=== PATIENT | female | born 1990 | race Caucasian/White ===

== ENCOUNTER 2017-10-20 11:02 | Emergency (ER) | payer BC ==
[2017-10-20] MEDS ORDERED: SODIUM CHLORIDE 0.9% 1,000 ML IV STA (11:28)
[2017-10-20] MEDS ORDERED: KETOROLAC 30 MG/ML 1 ML VIAL IVP STA (11:28)
--- NOTE | 2017-10-20 11:33 | ED ---
General Adult HPI - General Chief complaint: Back Pain/Injury Stated complaint: right back pain Time Seen by Provider: 10/20/17 11:15 Source: patient, RN notes reviewed Mode of arrival: ambulatory Limitations: no limitations - History of Present Illness Initial comments: 27-year-old female presents to the emergency department with a chief complaint of right flank pain. She states she's had this for about 3 days now. She states in the right flank. She states she hasn't had any burning or stinging with urination. She has had hot and cold flashes. She denies any blood in the urine. She denies any history of this in the past. She states she called the on-call doctor and they referred her here. They were concerned due to the patient's continued pain so she thought that she should be seen.Patient denies any recent fever, chills, shortness of breath, chest pain, nausea vomiting, numbness or tingling, dysuria or hematuria, constipation or diarrhea, headaches or visual changes, or any other current symptoms. - Related Data Home Medications Medication Instructions Recorded Confirmed ALPRAZolam [Xanax] 0.5 mg PO DAILY PRN 10/20/17 10/20/17 Previous Rx's Medication Instructions Recorded predniSONE 50 mg PO DAILY #5 tab 10/20/17 Allergies Allergy/AdvReac Type Severity Reaction Status Date / Time hydrocodone bitartrate Allergy Nausea & Verified 10/20/17 12:17 [From Vicodin] Vomiting iodine Allergy Unknown Verified 10/20/17 12:17 Review of Systems ROS Statement: Those systems with pertinent positive or pertinent negative responses have been documented in the HPI. ROS Other: All systems not noted in ROS Statement are negative. Past Medical History Past Medical History: GERD/Reflux Additional Past Medical History / Comment(s): epigastric pain for last few months, changes in bowel habits, family hx. Crohn's History of Any Multi-Drug Resistant Organisms: None Reported Additional Past Surgical History / Comment(s): eye surgery as an infant. [place] teeth removal. Past Anesthesia/Blood Transfusion Reactions: No Reported Reaction Past Psychological History: Anxiety Smoking Status: Current every day smoker Past Alcohol Use History: None Reported Past Drug Use History: None Reported - Past Family History Father Family Medical History: Diabetes Mellitus General Exam - General Exam Comments Initial Comments: General: The patient is awake and alert, in no distress, and does not appear acutely ill. Eye: Pupils are equal, round and reactive to light, extra-ocular movements are intact; there is normal conjunctiva bilaterally. No signs of icterus. Ears, nose, mouth and throat: There are moist mucous membranes and no oral lesions. Neck: The neck is supple, there is no tenderness. Cardiovascular: There is a regular rate and rhythm. No murmur, rub or gallop is appreciated. Respiratory: Lungs are clear to auscultation, respirations are non-labored, breath sounds are equal. No wheezes, stridor, rales, or rhonchi. Gastrointestinal: Soft, non-distended, non-tender abdomen without masses or organomegaly noted. There is no rebound or guarding present. No CVA tenderness. Bowel sounds are unremarkable. Back: There is no tenderness to palpation in the midline. There is no obvious deformity. No rashes noted. Musculoskeletal: Normal ROM, no tenderness, There is no pedal edema. There is no calf tenderness or swelling. Sensation intact. Pulses equal bilaterally 2+. Neurological: CN II-XII intact, There are no obvious motor or sensory deficits. Coordination appears grossly intact. Speech is normal. Skin: Skin is warm and dry and no rashes or lesions are noted. Psychiatric: Cooperative, appropriate mood & affect, normal judgment. Limitations: no limitations Course Vital Signs 10/20/17 11:12 Temperature 98.1 F Pulse Rate 80 Respiratory 20 Rate Blood Pressure 124/78 O2 Sat by Pulse 99 Oximetry Medical Decision Making - Medical Decision Making 27-year-old female presents for right-sided flank pain. At this time patient's CAT scan lab work is been reviewed. Does appear the patient has a colitis. At this time we discussed care for this. We discussed follow-up we discussed return parameters all questions. Patient stated that she understood and she is agreement this plan. All questions have been answered. She will be discharged. - Lab Data Result diagrams: 10/20/17 11:37 10/20/17 11:37 Lab Results 10/20/17 10/20/17 10/20/17 Range/Units 11:37 11:37 11:37 WBC 5.2 (3.8-10.6) k/uL RBC 5.01 (3.80-5.40) m/uL Hgb 15.1 (11.4-16.0) gm/dL Hct 47.1 H (34.0-46.0) % MCV 94.1 (80.0-100.0) fL MCH 30.1 (25.0-35.0) pg MCHC 32.0 (31.0-37.0) g/dL RDW 12.6 (11.5-15.5) % Plt Count 304 (150-450) k/uL Neutrophils % 45 % Lymphocytes % 39 % Monocytes % 5 % Eosinophils % 8 % Basophils % 1 % Neutrophils # 2.3 (1.3-7.7) k/uL Lymphocytes # 2.0 (1.0-4.8) k/uL Monocytes # 0.3 (0-1.0) k/uL Eosinophils # 0.4 (0-0.7) k/uL Basophils # 0.0 (0-0.2) k/uL Sodium 141 (137-145) mmol/L Potassium 4.3 (3.5-5.1) mmol/L Chloride 104 (98-107) mmol/L Carbon Dioxide 26 (22-30) mmol/L Anion Gap 11 mmol/L BUN 13 (7-17) mg/dL Creatinine 0.70 (0.52-1.04) mg/dL Est GFR (MDRD) Af Amer >60 (>60 ml/min/1.73 sqM) Est GFR (MDRD) Non-Af >60 (>60 ml/min/1.73 sqM) Glucose 88 (74-99) mg/dL Calcium 9.6 (8.4-10.2) mg/dL Total Bilirubin 0.4 (0.2-1.3) mg/dL AST 25 (14-36) U/L ALT 35 (9-52) U/L Alkaline Phosphatase 53 (38-126) U/L Total Protein 7.6 (6.3-8.2) g/dL Albumin 4.5 (3.5-5.0) g/dL Amylase 59 (30-110) U/L Lipase 106 (23-300) U/L Urine Color Urine Appearance (Clear) Urine pH (5.0-8.0) Ur Specific [place] (1.001-1.035) Urine Protein (Negative) Urine Glucose (UA) (Negative) Urine Ketones (Negative) Urine Blood (Negative) Urine Nitrite (Negative) Urine Bilirubin (Negative) Urine Urobilinogen (<2.0) mg/dL Ur Leukocyte Esterase (Negative) Urine HCG, Qual Not Detected (Not Detectd) 10/20/17 Range/Units 11:37 WBC (3.8-10.6) k/uL RBC (3.80-5.40) m/uL Hgb (11.4-16.0) gm/dL Hct (34.0-46.0) % MCV (80.0-100.0) fL MCH (25.0-35.0) pg MCHC (31.0-37.0) g/dL RDW (11.5-15.5) % Plt Count (150-450) k/uL Neutrophils % % Lymphocytes % % Monocytes % % Eosinophils % % Basophils % % Neutrophils # (1.3-7.7) k/uL Lymphocytes # (1.0-4.8) k/uL Monocytes # (0-1.0) k/uL Eosinophils # (0-0.7) k/uL Basophils # (0-0.2) k/uL Sodium (137-145) mmol/L Potassium (3.5-5.1) mmol/L Chloride (98-107) mmol/L Carbon Dioxide (22-30) mmol/L Anion Gap mmol/L BUN (7-17) mg/dL Creatinine (0.52-1.04) mg/dL Est GFR (MDRD) Af Amer (>60 ml/min/1.73 sqM) Est GFR (MDRD) Non-Af (>60 ml/min/1.73 sqM) Glucose (74-99) mg/dL Calcium (8.4-10.2) mg/dL Total Bilirubin (0.2-1.3) mg/dL AST (14-36) U/L ALT (9-52) U/L Alkaline Phosphatase (38-126) U/L Total Protein (6.3-8.2) g/dL Albumin (3.5-5.0) g/dL Amylase (30-110) U/L Lipase (23-300) U/L Urine Color Yellow Urine Appearance Clear (Clear) Urine pH 5.0 (5.0-8.0) Ur Specific [place] 1.016 (1.001-1.035) Urine Protein Negative (Negative) Urine Glucose (UA) Negative (Negative) Urine Ketones Negative (Negative) Urine Blood Negative (Negative) Urine Nitrite Negative (Negative) Urine Bilirubin Negative (Negative) Urine Urobilinogen <2.0 (<2.0) mg/dL Ur Leukocyte Esterase Negative (Negative) Urine HCG, Qual (Not Detectd) - Radiology Data Radiology results: report reviewed, image reviewed Disposition Clinical Impression: Colitis Disposition: HOME SELF-CARE Condition: Stable Instructions: Colitis (ED) Additional Instructions: Please use medication as discussed. Please follow up with family doctor if symptoms have not improved over the next two days. Please return to the emergency room if your symptoms increase or worsen or for any other concerns. Prescriptions: predniSONE 50 mg PO DAILY #5 tab Referrals: Lenny Elizabeth MD [Primary Care Provider] - 1-2 days Time of Disposition: 13:00
[2017-10-20 11:51] LABS: Appearance,Urine Clear (Clear); Basophils % (A) 1 %; Bilirubin,Urine Negative (Negative); Blood,Urine Negative (Negative); Color,Urine Yellow; Eosinophils # (A) 0.4 k/uL (0-0.7); Eosinophils % (A) 8 %; Glucose,Urine (UA) Negative (Negative); HCT 47.1 % (34.0-46.0); HGB 15.1 gm/dL (11.4-16.0); Ketones,Urine Negative (Negative); Leukocyte Esterase,Urine Negative (Negative); Lymphocytes % (A) 39 %; MCH 30.1 pg (25.0-35.0); MCV 94.1 fL (80.0-100.0); Mean Platelet Volume 6.6; Monocytes # (A) 0.3 k/uL (0-1.0); Monocytes % (A) 5 %; Neutrophils # (A) 2.3 k/uL (1.3-7.7); Neutrophils % (A) 45 %; Nitrite,Urine Negative (Negative); Platelet Count 304 k/uL (150-450); Protein,Urine Negative (Negative); RBC 5.01 m/uL (3.80-5.40); RDW 12.6 % (11.5-15.5); Specific Gravity,Urine 1.016 (1.001-1.035); Urobilinogen,Urine <2.0 mg/dL (<2.0); WBC 5.2 k/uL (3.8-10.6)
[2017-10-20 12:05] LABS: ALT 35 U/L (9-52); AST 25 U/L (14-36); Albumin 4.5 g/dL (3.5-5.0); Alkaline Phosphatase 53 U/L (38-126); Amylase 59 U/L (30-110); Anion Gap 11 mmol/L; Blood Urea Nitrogen 13 mg/dL (7-17); Calcium 9.6 mg/dL (8.4-10.2); Carbon Dioxide 26 mmol/L (22-30); Chloride 104 mmol/L (98-107); Glucose 88 mg/dL (74-99); Lipase 106 U/L (23-300); Potassium 4.3 mmol/L (3.5-5.1); Sodium 141 mmol/L (137-145); Total Bilirubin 0.4 mg/dL (0.2-1.3); Total Protein 7.6 g/dL (6.3-8.2)
--- NOTE | 2017-10-20 12:48 | CT ---
EXAMINATION TYPE: CT abdomen pelvis wo con DATE OF EXAM: 10/20/2017 COMPARISON: NONE HISTORY: Right flank and back pain CT DLP: 392.30 mGycm Automated exposure control for dose reduction was used. FINDINGS: There is a mild pectus excavatum deformity. Visualized portions of the lungs are clear. There is no pleural or pericardial fluid. The heart is no t enlarged. There is a small hiatal hernia. Within the abdomen, the liver is mildly prominent measuring 20 cm. This is largely due to a prominent Christos's lobe. The spleen and gallbladder are normal. Both adrenal glands are normal. There is no evidence of hydronephrosis or nephrolithiasis. The pancreas is unremarkable. There is no significant retroperitoneal, iliac or inguinal adenopathy. The bladder is unremarkable. There is an IUCD within the uterus. There are follicular changes within the ovaries. There is no significant diverticular change and there is no radiographic evidence of diverticulitis. There is mucosal thickening involving the transverse colon. The appendix is not visualized with certa inty. There is no free fluid and no free air. No bony lesion is identified. IMPRESSION: 1. MUCOSAL THICKENING THROUGHOUT THE TRANSVERSE COLON. PLEASE CORRELATE FOR COLITIS. 2. SMALL HIATAL HERNIA. 3. NO EVIDENCE OF NEPHROLITHIASIS OR HYDRONEPHROSIS.
[2017-10-20] MEDS ORDERED: METOCLOPRAMIDE 5 MG/ML 2 ML VIAL IVP STA (13:04)
[2017-10-20 13:20] VITALS: BP 101/55; PULSE 68; RESP 18; TEMP 97.9
== END 2017-10-20 13:19 | disposition home or self-care (01) ==
LOC: EC 11:02
DX: K52.9 Noninfective gastroenteritis and colitis, unspecified (principal); F17.200 Nicotine dependence, unspecified, uncomplicated; Z87.19 Personal history of other diseases of the digestive system; Z88.5 Allergy status to narcotic agent; Z91.048 Other nonmedicinal substance allergy status
CPT/HCPCS: 36415; 80053; 82150; 83690; 85025; 81003; 81025; 87040; 87086; 74176; 99284; 96374; 96375; 96361 ×2; J2765; J1885

== ENCOUNTER → 2018-10-10 | Outpatient (CLI) | payer OTHER ==
[2018-10-10 12:56] LABS: Glucose 2 Hour 107 mg/dL
== END | disposition home or self-care (01) ==
LOC: LABWHC1 08:43
PROVIDERS: ATTEND Family Medicine
DX: E16.2 Hypoglycemia, unspecified (principal)
CPT/HCPCS: 36415; 82947; 82950

== ENCOUNTER → 2018-10-31 | Outpatient (CLI) | payer BC, OTHER ==
--- NOTE | 2018-10-31 12:59 | US ---
EXAMINATION TYPE: US pelvic complete DATE OF EXAM: 10/31/2018 COMPARISON: NONE CLINICAL HISTORY: E28.2 PCOS. IUD removed in June, has been 10-18 days for 2 cycles since, having infertility issues, possible pcos TECHNIQUE: TA. Date of LMP: unknown EXAM MEASUREMENTS: Uterus: 7.2 x 6.2 x 4.1 cm Endometrial Stripe: 0.7 cm Right Ovary: 3.5 x 2.6 x 2.5 cm Left Ovary: 2.9 x 2.6 x 2.3 cm 1. Uterus: Retroverted wnl 2. Endometrium: wnl 3. Right Ovary: multiple very small peripherally oriented follicles seen 4. Left Ovary: multiple very small peripherally oriented follicles seen 5. Bilateral Adnexa: wnl 6. Posterior cul-de-sac: wnl IMPRESSION: Multiple bilateral very small peripherally oriented follicles are seen suggestive of poly cystic ovarian syndrome however the number cannot be clearly accounted as only transabdominal imaging was performed.
== END | disposition home or self-care (01) ==
LOC: RADUSWWP 12:16
PROVIDERS: ATTEND Family Medicine
DX: E28.2 Polycystic ovarian syndrome (principal)
CPT/HCPCS: 76856

== ENCOUNTER 2020-03-29 19:00 | Outpatient (CLI) | payer OTHER ==
[2020-03-29 19:34] VITALS: RESP 16; TEMP 98.4
[2020-03-29 20:14] LABS: Appearance,Urine Clear (Clear); Bilirubin,Urine Negative (Negative); Blood,Urine Negative (Negative); Color,Urine Light Yellow; Glucose,Urine (UA) Negative (Negative); Ketones,Urine Trace (Negative); Leukocyte Esterase,Urine Negative (Negative); Nitrite,Urine Negative (Negative); Protein,Urine Negative (Negative); Specific Gravity,Urine 1.014 (1.001-1.035); Urobilinogen,Urine <2.0 mg/dL (<2.0)
[2020-03-29] MEDS: LACTATED RINGERS 1,000 ML IV SCH ×5 (20:45→22:04)
[2020-03-29] MEDS: TERBUTALINE 1 MG/ML VIAL SQ PRN ×2 (22:05→22:20)
[2020-03-30 01:36] VITALS: BP 128/62; PULSE 76
--- NOTE | 2020-04-16 19:12 | P.MSEPDOC ---
Presenting Problems - Arrival Data Date of Arrival on Unit: 03/30/20 Time of Arrival on Unit: 19:00 Mode of Transport: Ambulatory - Complaint OB-Reason for Admission/Chief Complaint: Possible Onset of Labor Comment: contractions since last night more regular and stronger since 1600 today Medical History - Information : 2 Para: 1 Term: 1 : 0 Abortions: Spontaneous or Elective: 0 Number of Living Children: 1 - Gestational Age Gestational Age by WADE (wks/days): 35 Weeks and 4 Days Review of Systems - Review of Systems Constitutional: No problems Breast: No problems ENT: No problems Cardiovascular: No problems Respiratory: No problems Gastrointestinal: No problems Genitourinary: No problems Musculoskeletal: No problems Neurological: No problems Skin: No problems Vital Signs - Temperature Temperature: 98.4 F Temperature Source: Temporal Artery Scan - Pulse Right Brachial Pulse Rate: 76 Pulse Assessment Method: Automatic Cuff - Respirations Respiratory Rate: 16 Oxygen Delivery Method: Room Air O2 Sat by Pulse Oximetry: 99 - Blood Pressure Right Arm Blood Pressure: 128/62 Blood Pressure Mean: 84 Blood Pressure Source: Automatic Cuff Medical Screen Scoring (Pre) - Cervical Exam Dilation: 0 cm = 0 Membranes: Intact - Uterine Contractions Frequency: < 36 weeks = 6 Duration: > 40 seconds = 2 Intensity: N/A - Maternal Vital Signs Maternal Temperature: N/A Maternal Blood Pressure: N/A Signs of Preeclampsia: N/A Maternal Respirations: N/A - Maternal Trauma Maternal Trauma: N/A - Assessment - Baby A Baseline FHR: 125 Heart Rate - NICHD Category: Category I (Normal) = 0 NST: Reactive Position: N/A Station: N/A - Total Score - Baby A Total Score - Baby A: 8 - Total Score - Baby B Total Score - Baby B: 8 - Total Score - Baby C Total Score - Baby C: 8 - Level of Risk - Baby A Level of Risk - Baby A: Medium (6-9) - Level of Risk - Baby B Level of Risk - Baby B: Medium (6-9) - Level of Risk - Baby C Level of Risk - Baby C: Medium (6-9) Physician Notification (Pre) - Physician Notified Physician Notified Date: 03/29/20 Physician Notified Time: 23:06 New Order Received: Yes (terb protocol and iv hydrate) - Notification Comment Comment: pt refusing additional doses of terb, contractions less painful and spacing out, closed and thick and high, pt comfortable going home and following up in office if contractions do not stop Disposition - Disposition OB Disposition: Triage, Discharge to home Discharge Date: 03/29/20 Discharge Time: 23:14 I agree with the RN Medical Screening Exam: Yes Risk & Benefit of care provided described in d/c instruction: Yes Diagnosis: FALSE LABOR BEFORE 37 COMPLETED WEEKS OF GEST, THIRD TRI
== END 2020-03-29 23:14 | disposition home or self-care (01) ==
LOC: FBPOP 19:00
PROVIDERS: ATTEND Obstetrics & Gynecology
DX: O47.03 False labor before 37 completed weeks of gestation, third trimester (principal); Z3A.35 35 weeks gestation of pregnancy
CPT/HCPCS: 59025; 96360; 96361; 96372; 81003; G0463; J3105; 99214

== ENCOUNTER → 2020-12-29 | Outpatient (CLI) | payer BC, OTHER ==
--- NOTE | 2020-12-29 19:35 | CT ---
EXAMINATION TYPE: CT brain wo con DATE OF EXAM: 12/29/2020 COMPARISON: None available. HISTORY: Headaches, felt both temples, behind eyes and occipital region. CT DLP: 1126.5 mGycm. Automated Exposure Control for Dose Reduction was Utilized. TECHNIQUE: CT scan of the head is performed without contrast. FINDINGS: There is no acute intracranial hemorrhage, mass effect, or midline shift identified. The ventricles and sulci are within normal limits in size. The globes are intact and the visualized sin uses are clear. IMPRESSION: No acute intracranial hemorrhage, mass effect, or midline shift is seen.
== END | disposition home or self-care (01) ==
LOC: RADCTMAIN 18:34
PROVIDERS: ATTEND Family Medicine
DX: R51.9 Headache, unspecified (principal)
CPT/HCPCS: 70450

== ENCOUNTER → 2021-02-09 | Outpatient (CLI) | payer BC, OTHER ==
--- NOTE | 2021-02-09 13:02 | US ---
EXAMINATION TYPE: US carotid duplex BILAT DATE OF EXAM: 02/09/2021 COMPARISON: NONE CLINICAL HISTORY: H93.11 Tinnitus. Patient states she feels the pulse in her right ear. EXAM MEASUREMENTS: RIGHT: Peak Systolic Velocity (PSV) cm/sec ----- Right CCA: 145.0 ----- Right ICA: 157.4 ----- Right ECA: 109.7 ICA/CCA ratio: 1.1 RIGHT: End Diastole cm/sec ----- Right CCA: 38.6 ----- Right ICA: 47.1 ----- Right ECA: 22.5 LEFT: Peak Systolic Velocity (PSV) cm/sec ----- Left CCA: 112.4 ----- Left ICA: 112.4 ----- Left ECA: 105.6 ICA/CCA ratio: 1.0 LEFT: End Diastole cm/sec ----- Left CCA: 33.3 ----- Left ICA: 41.3 ----- Left ECA: 15.0 VERTEBRALS (direction of flow): Right Vertebral: Antegrade Left Vertebral: Antegrade Rhythm: Normal No wall thickening. No plaque. No significant stenosis. Elevated right mid CCA, right distal CCA, ri ght distal ICA and left mid CCA velocity. IMPRESSION: 50-69% stenosis of the right distal internal carotid artery by peak systolic velocity criteria. Criteria for Assigning % of Stenosis / Diameter reduction (Estimation based on the indirect measurements of the internal carotid artery velocities (ICA PSV). 1. Normal (no stenosis)=ICA PSV < 125 cm/s: ratio < 2.0: ICA EDV<40 cm/s. 2. Less than 50% stenosis=ICA PSV < 125 cm/s: ratio < 2.0: ICA EDV<40 cm/s. 3. 50 to 69% stenosis=ICA PSV of 125 to 230 cm/s: ration 2.0 ? 4.0: ICA EDV 40-100 cm/s. 4. Greater than 70% stenosis to near occlusion= ICA PSV > 230 cm/s: ratio > 4.0: ICA EDV > 100 cm/s. 5. Near occlusion= ICA PSV velocities may be low or undetectable: variable ratio and ICA EDV. 6. Total occlusion=unable to detect flow.
== END | disposition home or self-care (01) ==
LOC: RADUSWWP 11:02
PROVIDERS: ATTEND Psychiatry & Neurology Neurology
DX: I65.21 Occlusion and stenosis of right carotid artery (principal)
CPT/HCPCS: 93880

== ENCOUNTER → 2021-03-11 | Outpatient (CLI) | payer BC, OTHER ==
--- NOTE | 2021-03-11 11:53 | CT ---
EXAMINATION TYPE: CT angio neck DATE OF EXAM: 03/11/2021 HISTORY: Occlusion stenosis of unspecified carotid COMPARISON: Ultrasound 02/09/2021 CT DLP: 332 mGycm. Automated Exposure Control for Dose Reduction was Utilized. TECHNIQUE: CTA scan of the neck is performed with IV Contrast, patient injected with 65 mL of Isovue 370, axial images are obtained, coronal and sagittal reformatted images are reviewed. Three-D recons tructed images are created on an independent workstation and reviewed. FINDINGS: There is standard three-vessel anatomy regard to the aortic arch. Lung apices are clear. Common carotid, external carotid and internal carotid artery is widely patent bilaterally with no sig nificant hemodynamic stenosis. No significant plaque formation. Visualized thyroid is homogeneous. There is a normal course of the infant carotid arteries. Slight as ymmetry of the mucosa of the left oropharynx. IMPRESSION: 1. No evidence of significant plaque formation or significant hemodynamic stenosis. 2. Asymmetric thickening of the oral pharynx and the left likely technical.
== END | disposition home or self-care (01) ==
LOC: RADCTMAIN 07:49
PROVIDERS: ATTEND Family Medicine
DX: I65.29 Occlusion and stenosis of unspecified carotid artery (principal)
CPT/HCPCS: 70498; Q9967

== ENCOUNTER → 2021-05-17 | Outpatient (CLI) | payer BC, OTHER ==
--- NOTE | 2021-05-17 12:45 | CT ---
EXAMINATION TYPE: CT iac w con DATE OF EXAM: 05/17/2021 COMPARISON: CT brain December 29, 2020 HISTORY: pulsatile tinnitus CT DLP: 150 mGycm. Automated Exposure Control for Dose Reduction was Utilized. TECHNIQUE: CT scan of internal auditory canal is performed with IV contrast, thin cut axial images ar e obtained, coronal reformatted images are also reviewed. Patient injected with 100 cc of Omnipaque 300. FINDINGS: The external auditory canals remain patent bilaterally. Mastoid air cells show no evidence of new abnormal opacification bilaterally. The middle ear ossicles are symmetric and unremarkable. There is no evidence of suspicious surroundi ng soft tissue density to suggest cholesteatoma. The scutum is preserved bilaterally. The cochlea and the semicircular canals are symmetric and unremarkable. 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 Vestibular aqueduct and inte rnal carotid canal appear within normal limits. Temporomandibular joints are maintained bilaterally. Visualized paranasal sinuses show mild peripher al mucosal thickening in the visualized portion of right maxillary sinus and single opacified right e thmoid sinus axial image 39 unchanged from prior possible tiny polyp. Visualized portion brain paren chyma is felt within normal limits. No suspicious enhancement is seen. IMPRESSION: No significant abnormality seen to account for patient's symptoms of pulsatile tinnitus.
== END | disposition home or self-care (01) ==
LOC: RADCTMAIN 11:41
PROVIDERS: ATTEND Otolaryngology
DX: H93.A9 Pulsatile tinnitus, unspecified ear (principal)
CPT/HCPCS: 70481; Q9967

== ENCOUNTER → 2022-06-12 | Outpatient (CLI) | payer BC, OTHER ==
--- NOTE | 2022-06-12 10:54 | XR ---
EXAMINATION TYPE: XR foot limited LT DATE OF EXAM: 06/12/2022 CLINICAL HISTORY: Injury with pain TECHNIQUE: Frontal and lateral images of the left foot are obtained. COMPARISON: None FINDINGS: There is no acute fracture/dislocation evident in the left foot. Some flexion of the toes is present. The joint spaces in the left foot appear within normal limits. The overlying soft tissu e appears unremarkable. IMPRESSION: There is no acute displaced fracture in the left foot.
== END | disposition home or self-care (01) ==
LOC: RADXRMAIN 10:29
PROVIDERS: ATTEND Family Medicine
DX: S99.922A Unspecified injury of left foot, initial encounter (principal); X58.XXXA Exposure to other specified factors, initial encounter

== ENCOUNTER → 2024-05-14 | Outpatient (CLI) | payer BC, OTHER ==
[2024-05-14 15:40] LABS: Appearance,Urine Clear (Clear); Bilirubin,Urine Negative (Negative); Blood,Urine Negative (Negative); Color,Urine Yellow (Yellow); Ketones,Urine Negative (Negative); Nitrite,Urine Negative (Negative); Specific Gravity,Urine 1.021 (1.001-1.030); Urobilinogen,Urine 0.2 E.U./DL
[2024-05-14 15:43] LABS: ALT 31 U/L (8-44); AST 28 U/L (13-35); Albumin 4.6 g/dL (3.8-4.9); Albumin/Globulin Ratio 1.64 Ratio (1.60-3.17); Alkaline Phosphatase 56 U/L (41-126); Basophils # (A) 0.04 X 10*3/uL (0.00-0.10); Basophils % (A) 0.8 %; Blood Urea Nitrogen 9.9 mg/dL (9.0-27.0); Calcium 9.7 mg/dL (8.7-10.3); Carbon Dioxide 24.9 mmol/L (21.6-31.8); Chloride 102 mmol/L (96-109); Chol/HDL Ratio 3.89 Ratio; Eosinophils # (A) 0.32 X 10*3/uL (0.04-0.35); Eosinophils % (A) 6.5 %; Globulin 2.8 g/dL (1.6-3.3); Glucose 90 mg/dL (70-110); Lymphocytes # (A) 2.06 X 10*3/uL (0.90-5.00); MCH 30.6 pg (27.0-32.0); MCHC 33.3 g/dL (32.0-37.0); MCV 91.8 FL (80.0-97.0); Mean Platelet Volume 9.9 FL (9.5-12.2); Monocytes # (A) 0.34 X 10*3/uL (0.20-1.00); Monocytes % (A) 6.9 %; NRBC Per 100 WBC 0 X 10*3/uL (0.00-0.01); Neutrophils # (A) 2.14 X 10*3/uL (1.80-7.70); Neutrophils % (A) 43.6 %; Platelet Count 393 X 10*3/uL (140-440); Potassium 4.6 mmol/L (3.5-5.5); RDW 12.6 % (11.5-14.5); Sodium 137 mmol/L (135-145); T4, Free (Free Thyroxine) 1.19 ng/dL (0.80-1.80); Total Bilirubin 0.6 mg/dL (0.3-1.2); Total Protein 7.4 g/dL (6.2-8.2); VLDL Calculation 17.94 mg/dL (5.00-40.00); WBC 4.91 X 10*3/uL (4.50-10.00)
[2024-05-14 19:06] LABS: C-Peptide 2.32 ng/mL (0.81-3.85)
== END | disposition home or self-care (01) ==
LOC: LABWHC1 09:29
PROVIDERS: ATTEND Family Medicine
DX: Z00.00 Encounter for general adult medical examination without abnormal findings (principal); I10 Essential (primary) hypertension; N39.0 Urinary tract infection, site not specified; Z79.899 Other long term (current) drug therapy
CPT/HCPCS: 36415; 80053; 80061; 81003; 83036; 84439; 84443; 84481; 84681; 85025; 87086

== ENCOUNTER 2025-02-15 14:49 | Emergency (ER) | payer BC ==
[2025-02-15 15:28] VITALS: RESP 18
--- NOTE | 2025-02-15 15:56 | ED ---
Lower Extremity Injury HPI - General Source: patient, RN notes reviewed Mode of arrival: ambulatory Limitations: no limitations <JayMaria R - Last Filed: 02/15/25 15:54> - General Source: patient, RN notes reviewed Mode of arrival: ambulatory Limitations: no limitations <Susie Oliveros - Last Filed: 02/15/25 19:34> - General Chief Complaint: Extremity Injury, Lower Stated Complaint: R foot pain Time Seen by Provider: 02/15/25 15:54 - History of Present Illness Initial Comments: Quick [id number] female presenting for right foot injury 2 hours ago. States she dropped a car battery on her foot. Shortly afterwards, she had an episode of syncope. Denies chest pain, shortness of breath, heart palpitations, abdominal pain, headache. (Maria R Thompson) This is a 34-year-old female who presents to the emergency department for right foot pain. States that she dropped a car battery on her foot in the garage earlier today. She went inside and shortly afterwards had a syncopal episode. Believes that this was related to the pain. Denies hitting her head or sustaining any other injuries during this syncopal episode. Denies any history of syncopal episodes in the past. States that she currently feels back to her baseline, her only complaint is the right foot pain. States that it is making it difficult to ambulate. (Susie Oliveros) - Related Data Home Medications Medication Instructions Recorded Confirmed Citalopram Hydrobromide [CeleXA] 20 mg PO DAILY 03/29/20 04/23/20 Omeprazole 1 mg PO DAILY 03/29/20 04/23/20 Pnv No.95/Ferrous Fum/Folic AC 1 tab PO DAILY 03/29/20 04/23/20 [ Multivitamin Tablet] Albuterol Sulfate [Proair Hfa] 1 - 2 puff INHALATION Q6HR PRN 04/21/20 04/23/20 Loratadine [Claritin] 10 mg PO DAILY 04/21/20 04/23/20 Acetaminophen/Diphenhydramine 1 tab PO HS 04/23/20 04/23/20 [Tylenol PM 500-25mg] Previous Rx's Medication Instructions Recorded HYDROcodone/APAP 5-325MG [[place] 1 each PO Q4HR PRN #18 tab 04/25/20 5-325] Ketorolac [Toradol] 10 mg PO Q6HR PRN #15 tab 02/15/25 Allergies Allergy/AdvReac Type Severity Reaction Status Date / Time hydrocodone bitartrate Allergy Nausea & Verified 02/15/25 15:28 [From Vicodin] Vomiting iodine Allergy Unknown Verified 02/15/25 15:28 Review of Systems ROS Other: All systems not noted in ROS Statement are negative. <Maria R Thompson - Last Filed: 02/15/25 15:54> ROS Other: All systems not noted in ROS Statement are negative. <Susie Oliveros - Last Filed: 02/15/25 19:34> ROS Statement: Those systems with pertinent positive or pertinent negative responses have been documented in the HPI. Past Medical History Past Medical History: GERD/Reflux Additional Past Medical History / Comment(s): IBS, family hx. Crohn's, DIABETES AND HTN History of Any Multi-Drug Resistant Organisms: None Reported Additional Past Surgical History / Comment(s): eye surgery as an . [place] teeth removal. COLONOSCOPY/EGD Past Anesthesia/Blood Transfusion Reactions: No Reported Reaction Past Psychological History: Anxiety Smoking Status: Former smoker, Vaper Past Alcohol Use History: Rare Past Drug Use History: None Reported - Past Family History Father Family Medical History: Diabetes Mellitus <Maria R Thompson - Last Filed: 02/15/25 15:54> General Exam Limitations: no limitations <Maria R Thompson - Last Filed: 02/15/25 15:54> Limitations: no limitations General appearance: alert, in no apparent distress Head exam: Present: atraumatic, normocephalic, normal inspection Respiratory exam: Present: normal lung sounds bilaterally. Absent: respiratory distress, wheezes, rales, rhonchi, stridor Cardiovascular Exam: Present: regular rate, normal rhythm Extremities exam: Present: other (Swelling and ecchymosis to the dorsal aspect of the right foot with associated tenderness. Range of motion limited by pain. 2+ DP and PT pulses) Neurological exam: Present: alert, oriented X3, CN II-XII intact Psychiatric exam: Present: normal affect, normal mood Skin exam: Present: warm, dry, intact, normal color. Absent: rash <Susie Oliveros - Last Filed: 02/15/25 19:34> - General Exam Comments Initial Comments: Visual Physical Exam Vital signs reviewed General: Well-appearing, nontoxic, no acute distress. Head: Normocephalic, atraumatic Eyes: PERRLA, EOMI ENT: Airway patent Chest: Nonlabored breathing Skin: No visual rash, normal skin tone Neuro: Alert and oriented 3 Musculoskeletal: No gross abnormalities (Maria R Thompson) Course Vital Signs 02/15/25 02/15/25 15:25 19:05 Temperature 98.2 F 98.1 F Pulse Rate 81 76 Respiratory 18 18 Rate Blood Pressure 115/75 118/78 O2 Sat by Pulse 100 100 Oximetry Medical Decision Making <Maria R Thompson - Last Filed: 02/15/25 15:54> - Radiology Data Radiology results: report reviewed, image reviewed <Susie Oliveros - Last Filed: 02/15/25 19:34> - Medical Decision Making I completed the quick note portion of this chart signed Maria R Thompson PA-C (Maria R Thompson) This is a 34-year-old female who presents to the emergency department for right foot pain and a syncopal episode. Was pt. sent in by a medical professional or institution? @ -No Did you speak to anyone other than the patient for history? @ -No Did you review nursing and triage notes? @ -Yes, and I agree, it is accurate with regards to the patient's symptoms. Were old charts reviewed? @ -No Differential Diagnosis? @ -Differential Musculoskeletal Muscular strain, contusion, ligament sprain, fracture, arthritis, septic arthritis, bursitis, cellulitis, muscle spasm, nerve compression, DVT, arterial occlusion, herpes zoster, electrolyte abnormality, tumor.... This is not meant to be in all inclusive list EKG interpreted by me (3pts min.)? @ -EKG interpreted by me demonstrating the following: Sinus rhythm. Ventricular rate 71 bpm, ID interval 151 ms, QRS duration 90 ms, QTc 421 ms. X-rays interpreted by me (1pt min.)? @ -X-ray of the right foot obtained. My interpretation identifies no acute fractures. CT interpreted by me (1pt min.)? @ -Not obtained U/S interpreted by me (1pt. min.)? @ -Not obtained What testing was considered but not performed? (CT, X-rays, U/S, labs)? Why? @ -Laboratory testing including a CBC and CMP for the syncope, however patient declined. What meds were considered but not given? Why? @ -None Did you discuss the management of the patient with other professionals? @ -No Did you reconcile home meds? @ -No Was smoking cessation discussed for >3mins.? @ -I discussed smoking cessation for greater than 3 minutes. The risk of smoking were discussed with the patient including but not limited to risks of cancer, stroke, coronary artery disease and COPD. Also discussed with patient were multiple methods of quitting smoking. Lastly we discussed the financial cost of smoking. Was critical care preformed (if so, how long)? @ -No Were there social determinants of health that impacted care today? How? (Homelessness, low income, unemployed, alcoholism, drug addiction, transportation, low edu. Level, literacy, decrease access to med. care, half-way, rehab)? @ -No Was there de-escalation of care discussed even if they declined? (Discuss DNR or withdrawal of care, Hospice)? @ -No What co-morbidities impacted this encounter? (DM, HTN, Smoking, COPD, CAD, Cancer, CVA, Hep., AIDS, mental health diagnosis, sleep apnea, morbid obesity)? @ -Smoking Was patient admitted / discharged? @ -Discharged. X-ray of the right foot obtained revealing soft tissue swelling without other acute process. I did offer further workup including laboratory testing for the syncopal episode, however patient declined as she felt back to baseline and believes it was related to the pain. Pain was treated in the emergency department. Crutches and postoperative Velcro shoe were provided. Toradol prescribed for further management. Also advised ice and elevation as well as follow-up with her PCP in the next couple of days. Patient discharged home in stable condition. Case discussed with ED provider Jazmin. Return precautions reviewed in depth, the patient is instructed to return to the emergency department with any new, worsening, or concerning symptoms. Patient verbalized understanding. Undiagnosed new problem with uncertain prognosis? @ -None Drug Therapy requiring intensive monitoring for toxicity (Heparin, Nitro, I nsulin, Cardizem)? @ -None Were any procedures done? @ -None Diagnosis/symptom? @ -Right foot contusion, syncope Acute, or Chronic, or Acute on Chronic? @ -Acute Uncomplicated (without systemic symptoms) or Complicated (systemic symptoms)? @ -Uncomplicated Side effects of treatment? @ -None Exacerbation, Progression, or Severe Exacerbation] @ -Not applicable Poses a threat to life or bodily function? @ -May limit her ability to ambulate for the meantime. (Susie Oliveros) Disposition <Maria R Thompson - Last Filed: 02/15/25 15:54> Is patient prescribed a controlled substance at d/c from ED?: No Time of Disposition: 18:03 <Susie Oliveros - Last Filed: 02/15/25 19:34> Clinical Impression: Contusion of right foot, Syncope, Nicotine dependence Disposition: HOME SELF-CARE Instructions (If sedation given, give patient instructions): Foot Contusion (ED) Additional Instructions: Return to the emergency department with any new, worsening, or concerning symptoms. Take the Toradol with Tylenol as needed for pain relief. If you choose to take the Toradol, do not take any other anti-inflammatories such as ibuprofen, take one or the other. Follow up with your primary care provider in 1-2 days. Prescriptions: Ketorolac [Toradol] 10 mg PO Q6HR PRN #15 tab PRN Reason: Pain Referrals: Rubio Ramirez MD [Primary Care Provider] - 1-2 days
--- NOTE | 2025-02-15 16:39 | XR ---
EXAMINATION TYPE: XR foot complete RT DATE OF EXAM: 02/15/2025 4:29 PM COMPARISON: Prior radiograph 06/12/2022. CLINICAL INDICATION: Female, 34 years old with history of right foot injury; PHH, pain TECHNIQUE: XR foot complete RT examined in the AP, oblique, and lateral projections. FINDINGS: No evidence of any acute osseous pathology. No radiopaque foreign body. Soft tissue swelling present. IMPRESSION: No evidence of acute fracture. [facility], , 02/15/2025 4:37 PM
[2025-02-15] MEDS: ACET/COD 300 MG/30 MG STARTER PACK 6 TAB BTL PO STA (18:26)
[2025-02-15] MEDS: KETOROLAC 15 MG/ML 1 ML VIAL IM STA (18:27)
[2025-02-15] MEDS: Acetaminophen-Codeine 300-30mg TAB PO STA (18:27)
[2025-02-15 19:06] VITALS: BP 118/78; PULSE 76; TEMP 98.1
== END 2025-02-15 19:06 | disposition home or self-care (01) ==
LOC: EC 14:49
DX: S90.31XA Contusion of right foot, initial encounter (principal); R55 Syncope and collapse; F17.290 Nicotine dependence, other tobacco product, uncomplicated; Z88.5 Allergy status to narcotic agent; Z88.8 Allergy status to other drugs, medicaments and biological substances; W20.8XXA Other cause of strike by thrown, projected or falling object, initial encounter
CPT/HCPCS: 73630; 99283; 96372; J1885